=== PATIENT | female | born 1975 | race Caucasian/White ===

== ENCOUNTER 2016-08-28 13:22 | Emergency (ER) | payer OTHER ==
[2016-08-28 14:26] LABS: SPECIFIC GRAVITY 1.025 (1.001-1.030); URINE BILIRUBIN NEGATIVE (NEGATIVE); URINE BLOOD 3+ (NEGATIVE); URINE GLUCOSE (UA) NEGATIVE (NEGATIVE); URINE LEUKOCYTE ESTERASE 1+ (NEGATIVE); URINE NITRITE NEGATIVE (NEGATIVE); URINE PROTEIN TRACE (NEGATIVE); URINE UROBILINOGEN NORMAL (0-1 mg/dl)
[2016-08-28 14:27] LABS: URINE COLOR DARK YELLOW
[2016-08-28 14:28] LABS: HCG,QUALITATIVE URINE NEGATIVE; URINE APPEARANCE HAZY
[2016-08-28 14:38] LABS: URINE WBC 50-60 /hpf
[2016-08-28 14:39] LABS: URINE BACTERIA 2+; URINE EPITHELIAL CELLS 0-1 /hpf
[2016-08-28] MEDS ORDERED: MECLIZINE HCL 25 MG TABLET ONE (14:41)
[2016-08-28] MEDS ORDERED: ONDANSETRON 4 MG/2ML 2 ML VIAL ONE (14:41)
[2016-08-28] MEDS ORDERED: DEXAMETHASONE SOD PHOS 10 MG/1 ML VIAL ONE (14:41)
[2016-08-28 14:44] LABS: ABSOLUTE NEUTROPHIL COUNT 4.7 K/mm3 (1.8-7.7); BASO # 0.1 K/mm3 (0.0-0.2); EOS # 0.8 (0.0-0.5); EOS % 9.4 % (0.9-2.9); HEMATOCRIT 44.2 % (37.0-47.0); HEMOGLOBIN 14.9 gm/l (12.0-16.0); IMM NEUT% 0.2 % (0-1); LYMPH # 2.5 (1.0-4.8); LYMPH % 29.3 % (15-45); MEAN CELL VOLUME 91.7 fl (81.0-99.0); MEAN CORPUSCULAR HEMOGLOBIN 30.9 pg (27.0-31.0); MEAN CORPUSCULAR HGB CONC 33.7 g/dl (33.0-37.0); MEAN PLATELET VOLUME 10.7 fl (7.4-10.4); MONO # 0.4 (0.0-0.8); MONO % 5.1 % (4-12); PLATELET COUNT 244 K/mm3 (130-400); RED CELL DISTRIBUTION WIDTH 12.5 % (11.5-14.5)
[2016-08-28 15:28] LABS: ALB/GLOB RATIO 1.3 (>1.0)
--- NOTE | 2016-08-28 15:29 | CT ---
HEAD W/O CON COMPARISON: CT head 04/19/2006 HISTORY: Dizziness for 1 1/2 weeks. TECHNIQUE: Using a [employer] Aqu[employer] [address] scanner, images were obtained through the head. An automated dose reduction technique was used to minimize patient radiation dose. DOSE INFORMATION: CTDIvol (mGy): 51.70 DLP(mGycm): 913.10 FINDINGS: Mass: None Intracranial Hemorrhage: None Acute Infarction: None Cerebral hemispheres: Normal Basal ganglia: Normal Thalami: Normal Brainstem: Normal Cerebellum: Normal Ventricles: Normal Basilar cisterns: Normal Corpus callosum: Normal Pituitary fossa: Normal Middle ears and mastoid air cells: Normal Orbits and sinuses: Normal Skull and scalp: Normal Dural sinuses and vessels: Normal IMPRESSION: Normal study. Report was sent to the emergency department electronic medical record system 08/28/2016 at 15:31
[2016-08-28] MEDS ORDERED: SULFAMETHOXAZOLE 800 MG/TRIMETHOPRIM 160 MG TABLET ONE (15:47)
== END 2016-08-28 16:25 | disposition home or self-care (01) ==
LOC: ED 13:22
DX: N39.0 Urinary tract infection, site not specified (principal); R42 Dizziness and giddiness; J45.909 Unspecified asthma, uncomplicated; Z79.899 Other long term (current) drug therapy; Z88.0 Allergy status to penicillin; Z88.8 Allergy status to other drugs, medicaments and biological substances
CPT/HCPCS: 81025; 85025; 87086; 80053; 87186; 81001; 70450; 99284 ×2; 96374; 82962; A9270 ×2; J1100; J2405